=== PATIENT | male | born 1990 | race African-American/Black ===

== ENCOUNTER 2017-07-23 03:59 | Emergency (ER) | payer MEDICAID ==
[~2017-07-23] VITALS: Ht 185.4 cm; Wt 77.1 kg
[2017-07-23] MEDS ORDERED: IV NORMAL SALINE 1000 ML BAG IV ONE ×2 (04:30→05:30)
--- NOTE | 2017-07-23 04:43 | NUR ---
Patient out of unit for ct scan via [place]
[2017-07-23 04:50] LABS: BASOPHILS % (AUTO) 0.3 % (0.0-2.0); EOSINOPHILS % (AUTO) 0.2 % (0.0-7.0); HEMATOCRIT 37.9 % (40-50); HEMOGLOBIN 12.2 G/DL (14.0-18.0); LYMPHOCYTES # (AUTO) 1.5 K/UL (0.8-4.8); LYMPHOCYTES % (AUTO) 15.8 % (20.5-51.5); MEAN CORPUSCULAR HGB CONC 32 g/dL (32.0-37.0); MEAN CORPUSCULAR VOLUME 90.3 FL (82.0-92.0); MONOCYTES # (AUTO) 0.4 K/UL (0.1-1.30); MONOCYTES % (AUTO) 4.3 % (0.0-11.0); NEUTROPHILS # (AUTO) 7.4 K/UL (1.8-8.9); NEUTROPHILS % (AUTO) 79.4 % (38.5-71.5); PLATELET COUNT (AUTO) 275 K/UL (150-450); WHITE BLOOD COUNT (AUTO) 9.3 K/UL (4.0-11.2)
--- NOTE | 2017-07-23 04:51 | NUR ---
PATIENT BACK FROM CT SCAN WITH NO DISTRESS NOTED
[2017-07-23 04:58] LABS: CREATININE 1.1 mg/dL (0.6-1.3); POTASSIUM 4.1 mmol/L (3.5-5.1)
[2017-07-23 05:04] LABS: BILIRUBIN,DIRECT 0.2 mg/dL (0.0-0.2); BILIRUBIN,TOTAL 0.4 mg/dL (0.2-1.0); TOTAL PROTEIN, SERUM 7.2 g/dL (6.4-8.2)
[2017-07-23 05:46] LABS: *BILIRUBIN,URIN NEGATIVE (NEGATIVE); *BLOOD, URINE NEGATIVE (NEGATIVE); *CLARITY,URINE CLEAR (CLEAR); *COLOR,URINE YELLOW (YELLOW); *KETONES,URINE 1+ (NEGATIVE); *PROTEIN,URINE NEGATIVE (NEGATIVE); LEUKOCYTE ESTERASE ,URINE NEGATIVE (NEGATIVE); NITRITE, URINE NEGATIVE (NEGATIVE); PH,URINE 5.5 (5.0-8.0); UGLUCOSE NEGATIVE (NEGATIVE)
--- NOTE | 2017-07-23 06:02 | NUR ---
Call placed to [facility], Dr. Almanza will be paged.
[2017-07-23 06:09] LABS: BACTERIA,URINE NONE SEEN /HPF (NONE SEEN); MUCUS,URINE FEW /LPF (0-FEW); RBC,URINE 0-3 /HPF (0-3); SQUAMOUS EPITHELIAL CELL,UR FEW /HPF (NONE SEEN); WBC,URINE 0-3 /HPF (0-3)
--- NOTE | 2017-07-23 08:22 | NUR ---
PT AWAKE, SAYS FEELS BETTER, REFUSED BF AT THIS TIME. SAYS NEEDS MORE TIME TO REST.
--- NOTE | 2017-07-23 09:00 | NUR ---
HOSPITAL SANDWICH, JUICE AND BOTTLED WATER PROVIDED. PT ATE WITH GOOD APPETITE.
--- NOTE | 2017-07-23 09:44 | NUR ---
PT FEELS BETTER, DENEIS ANY DIZZINESS, N/V, LIGHTHEADEDNESS.
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
== END 2017-07-23 09:57 | disposition home or self-care (01) ==
LOC: ER 04:08
DX: R55 Syncope and collapse (principal); R42 Dizziness and giddiness; R11.0 Nausea; F17.200 Nicotine dependence, unspecified, uncomplicated
CPT/HCPCS: 36415; 70450; 71010; 80048; 80076; 81001; 82550; 83605 ×2; 84484; 85025; 85730; 87040 ×2; 87086; 93005; 96360; 96361; 99285; A4663; J7030 ×2; 70030-TC